=== PATIENT | female | born 1970 ===

== ENCOUNTER 2021-11-09 05:58 | Day surgery (SDC) | payer BC ==
[~2021-11-09 05:58] MED LIST: Midazolam 1 MG/ML 2 ML SDV ONE; fentaNYL 100 MCG/2 ML SDV ONE
[2021-11-09] MEDS ORDERED: fentaNYL 100 MCG/2 ML SDV IV ONE ×3 (05:59→06:57)
[2021-11-09] MEDS ORDERED: Midazolam 1 MG/ML 2 ML SDV IV ONE ×3 (05:59→06:58)
[2021-11-09] MEDS ORDERED: Sodium Chloride 0.9% 10 ML Syringe FLUSH SCH (06:00)
[2021-11-09] MEDS ORDERED: Dextrose 5%-0.45% NaCl 1,000 ML IV SCH (06:00)
[2021-11-09] MEDS ORDERED: Sodium Chloride 0.9% 10 ML Syringe FLUSH PRN (06:00)
== END 2021-11-09 09:10 | disposition home or self-care (01) ==
LOC: DL.ENDO 05:58
PROVIDERS: ATTEND Internal Medicine Gastroenterology
DX: I78.1 Nevus, non-neoplastic (principal); D50.9 Iron deficiency anemia, unspecified; Z98.84 Bariatric surgery status; E66.09 Other obesity due to excess calories; F41.1 Generalized anxiety disorder; E03.9 Hypothyroidism, unspecified; Z98.890 Other specified postprocedural states; Z88.5 Allergy status to narcotic agent; Z90.49 Acquired absence of other specified parts of digestive tract; F32.A Depression, unspecified; Z68.34 Body mass index [BMI] 34.0-34.9, adult
CPT/HCPCS: 43239; 87077; J2250; J3010; J7042

== ENCOUNTER 2021-11-23 05:26 | Day surgery (SDC) | payer BC ==
[2021-11-23] MEDS ORDERED: Midazolam 1 MG/ML 2 ML SDV IV ONE ×8 (05:27→07:16)
[2021-11-23] MEDS ORDERED: fentaNYL 100 MCG/2 ML SDV IV ONE ×7 (05:27→07:03)
[2021-11-23] MEDS ORDERED: Midazolam 1 MG/ML 2 ML SDV ONE (05:30)
[2021-11-23] MEDS ORDERED: fentaNYL 100 MCG/2 ML SDV ONE (05:30)
[2021-11-23] MEDS ORDERED: Sodium Chloride 0.9% 10 ML Syringe FLUSH PRN (06:00)
[2021-11-23] MEDS ORDERED: Dextrose 5%-0.45% NaCl 1,000 ML IV SCH (06:00)
[2021-11-23] MEDS ORDERED: Sodium Chloride 0.9% 10 ML Syringe FLUSH SCH (09:00)
== END 2021-11-23 09:28 | disposition home or self-care (01) ==
LOC: DL.ENDO 05:26
PROVIDERS: ATTEND Internal Medicine Gastroenterology
DX: R19.4 Change in bowel habit (principal); R10.9 Unspecified abdominal pain; E66.09 Other obesity due to excess calories; F41.1 Generalized anxiety disorder; E03.9 Hypothyroidism, unspecified; Z98.84 Bariatric surgery status; Z90.49 Acquired absence of other specified parts of digestive tract; Z98.890 Other specified postprocedural states; Z88.5 Allergy status to narcotic agent; Z01.812 Encounter for preprocedural laboratory examination; Z20.822 Contact with and (suspected) exposure to COVID-19
CPT/HCPCS: 45378; 87635; J2250; J3010; J7042; U0002

== ENCOUNTER 2022-03-13 21:48 | Observation (INO) | payer BC ==
[2022-03-13] MEDS ORDERED: Iopamidol 755 Mg/ML 100 ML Bottle IVPUSH ONE (23:50)
[2022-03-13] MEDS ORDERED: Aspirin 325 MG Tab PO ONE (23:51)
[2022-03-14] MEDS ORDERED: cefTRIAXone 1 GM in Sodium Chloride 0.9% 50 ML IV ONE (00:29)
[2022-03-14] MEDS ORDERED: Bisacodyl 5 MG Tab PO PRN (01:23)
[2022-03-14] MEDS ORDERED: Zolpidem 5 MG Tab PO PRN (01:23)
[2022-03-14] MEDS ORDERED: Albuterol/Ipratropium 3.0-0.5 MG/3 ML Neb Soln NEB PRN (01:23)
[2022-03-14] MEDS ORDERED: Docusate Sodium 100 MG Cap PO PRN (01:23)
[2022-03-14] MEDS ORDERED: Polyethylene Glycol 3350 Powder 17 GM Packet PO PRN (01:23)
[2022-03-14] MEDS ORDERED: Acetaminophen 325 MG Tab PO PRN (01:23)
[2022-03-14] MEDS ORDERED: Ondansetron 4 MG/2 ML SDV IVPUSH PRN (01:23)
[2022-03-14] MEDS ORDERED: Sodium Chloride 0.9% 10 ML Syringe FLUSH PRN (01:23)
[2022-03-14] MEDS ORDERED: Promethazine 25 MG/ML SDV IM PRN (01:23)
[2022-03-14] MEDS ORDERED: Labetalol 20 MG/4 ML Syringe IVPUSH PRN (01:31)
[2022-03-14] MEDS ORDERED: Dextrose 5%-0.9% NaCl 1,000 ML IV SCH (01:45)
[2022-03-14 02:10] LABS: HEMOGLOBIN A1C 5.5 % (<5.7)
[2022-03-14 07:33] LABS: ANION GAP 13.4 mEq/L (7-13); CHLORIDE,CL 107 mmol/L (98-107); SODIUM,NA 144 mmol/L (136-145)
[2022-03-14 07:36] LABS: ESTIMATED GFR 106 mL/min (>=60)
[2022-03-14] MEDS ORDERED: Potassium Chloride 10 MEQ Tab.ER PO ONE (08:09)
[2022-03-14] MEDS ORDERED: Acetaminophen/Butalbital/Caffeine 325-50-40 MG Tab PO PRN (08:58)
[2022-03-14] MEDS ORDERED: Multivitamin Tab PO SCH (09:00)
[2022-03-14] MEDS ORDERED: Saccharomyces Boulardii (Probiotic) 250 MG Cap PO SCH (09:00)
[2022-03-14] MEDS ORDERED: Cholecalciferol (Vitamin D3) 25 MCG Tab PO SCH (09:00)
[2022-03-14] MEDS ORDERED: FERROUS GLUCONATE 240 MG PO SCH (09:00)
[2022-03-14] MEDS ORDERED: Sodium Chloride 0.9% 10 ML Syringe FLUSH SCH (09:00)
[2022-03-14] MEDS ORDERED: Levothyroxine 100 MCG Tab PO STA (09:42)
[2022-03-14] MEDS ORDERED: Ciprofloxacin 500 MG Tab PO ONE (11:58)
[2022-03-15] MEDS ORDERED: cefTRIAXone 1 GM in Sodium Chloride 0.9% 50 ML IV SCH ×2
[2022-03-15] MEDS ORDERED: Levothyroxine 150 MCG Tab PO SCH (06:00)
[2022-03-23] MEDS ORDERED: Cyanocobalamin (Vitamin B12) 1,000 MCG/ML SDV IM SCH (09:00)
== END 2022-03-14 12:25 | disposition home or self-care (01) ==
LOC: DL.ED 21:48 → DL.MS 03-14 00:50 → DL.ED 03-14 01:12
PROVIDERS: ADMIT Internal Medicine; ATTEND Internal Medicine
DX: I63.81 Other cerebral infarction due to occlusion or stenosis of small artery (principal); I11.0 Hypertensive heart disease with heart failure; I50.30 Unspecified diastolic (congestive) heart failure; K21.9 Gastro-esophageal reflux disease without esophagitis; E03.9 Hypothyroidism, unspecified; E53.8 Deficiency of other specified B group vitamins; F41.9 Anxiety disorder, unspecified; F32.A Depression, unspecified; E66.9 Obesity, unspecified; G43.109 Migraine with aura, not intractable, without status migrainosus; N39.0 Urinary tract infection, site not specified; E16.2 Hypoglycemia, unspecified; G89.29 Other chronic pain; M54.50 Low back pain, unspecified; D72.829 Elevated white blood cell count, unspecified; E87.6 Hypokalemia; Z90.49 Acquired absence of other specified parts of digestive tract; Z98.890 Other specified postprocedural states; Z88.5 Allergy status to narcotic agent; Z91.010 Allergy to peanuts; Z79.899 Other long term (current) drug therapy; Z68.35 Body mass index [BMI] 35.0-35.9, adult; Z79.82 Long term (current) use of aspirin
CPT/HCPCS: 36415; 70450; 70496; 70498; 70551; 80048; 80053; 80061; 81001; 82306; 82607; 82947; 83036; 83735; 84207; 84439; 84443; 84484; 85025; 85379; 85610; 86140; 87086; 93005; 96374; 97161-GP; 97165-GO; 99285-25; A9270-GY; G0378; J0696; J3490; J7042; Q9967

== ENCOUNTER 2025-02-26 06:09 | Emergency (ER) | payer BC ==
[2025-02-26] MEDS: Oxymetazoline 0.05% Nasal Spray 30 ML Bottle NAS ONE (06:22)
[2025-02-26] MEDS: Oxymetazoline 0.05% Nasal Spray 30 ML Bottle ONE (06:23)
== END 2025-02-26 07:50 | disposition home or self-care (01) ==
LOC: DL.ED 06:09
DX: R04.0 Epistaxis (principal); E66.9 Obesity, unspecified; E03.9 Hypothyroidism, unspecified; Z91.010 Allergy to peanuts; Z88.8 Allergy status to other drugs, medicaments and biological substances; Z90.89 Acquired absence of other organs; Z79.82 Long term (current) use of aspirin; Z86.16 Personal history of COVID-19
CPT/HCPCS: 99282; 99283; A9270